=== PATIENT | female | born 1980 | race African-American/Black ===

== ENCOUNTER 2019-05-23 12:36 | Emergency (ER) | payer MEDICAID ==
[~2019-05-23] VITALS: Ht 157.5 cm; Wt 49.9 kg
[2019-05-23 13:25] VITALS: BP 127/69
== END 2019-05-23 15:30 | disposition left against medical advice (07) ==
LOC: ER 12:43
DX: R05 Cough (principal); Z53.21 Procedure and treatment not carried out due to patient leaving prior to being seen by health care provider